=== PATIENT | male | born 1945 | race Caucasian/White ===

== ENCOUNTER 2024-10-15 14:11 | Outpatient (RCR) | payer MEDICARE, SELFPAY ==
--- NOTE | 2024-10-15 16:13 | PT.OPEX ---
PT [place] Outpatient Eval PT [facility] Outpatient Eval Start: 10/15/24 13:58 Freq: Status: Active Protocol: Document 10/15/24 14:00 ENM (Rec: 10/15/24 14:56 ENM [id number]) E-signed By Ericka Malhotra DPT Physical Therapy Outpatient Evaluation Insurance Information Recert Due Date 01/13/25 Insurance Name Medicare B Medical Diagnosis unilateral primary osteoarthritis, right knee presence of right artificial knee joint Treating Diagnosis right knee pain, left knee pain, impaired gait, impaired balance, decreased knee ROM, Referring MD Mikey Subjective Subjective Patient presents to PT for pre -op evaluation prior to right TKA on 10/22/24. This surgery is a long time coming. Had knee injections in the past which provided little relief of symptoms. Has been using the cane consistently out of the house and in the house. His will be helping after surgery who has had a knee replacement in the past. With doing activity on his feet he is limited by pain. His goal is to get back to standing and doing housework. For full information on home set up see pre-op flowsheet. Pain Comments -11/29 Current Work Status Retired Objective Other/Pertinent Objective Knee AROM L 0-9-117 R 0-6-121 Pain with knee extension B strength: hip flexors 4-/5 B knee extensors: 4-/5 B able to complete SLR without assist ankle DF 4/5 B gait/balance: Patient ambulates with SEC, slow pace, flexed posture, varus leg posture, decreased weight acceptance and decreased knee extension Assessment Assessment/Impression Patient is a 78 year old male presenting for pre op visit prior to L TKA on DOS 10/22/24. They have struggled with bilateral knee pains for years now with minimal relief from knee injections. Are hoping to have their left knee replaced in the future as well . Patients goals for after surgery are to be able to perform household tasks and stand for longer periods of time. Upon assessment patient displays decreased knee ROM, decreased proximal hip strength and antalgic gait pattern. Knee ROM is limited bilaterally, R knee 0-6-121. They display varus knee positioning in weightbearing. Gait impairments include slow pace, flexed posture, decreased knee extension and decreased weight acceptance. Chao will be seen post operatively at another facility to reassess impairments that will be addressed with skilled care. He would greatly benefit from skilled PT in order to progress strength, ROM and ambulation post operatively for return to PLOF. Primary Functional Limitations any standing or weightbearing activities Plan of Care Rehabilitation Potential Good Physical Therapy Goals After pre-op visit: ? Patient will be independent with HEP ? Patient will verbalize knowledge of stair navigation and proper sequencing ? Patient will have knowledge on home adaptations and use of assistive devices post operatively ? Patient will have knowledge of edema management Coordination/Communication With Referral Source Frequency/Duration 1x visit prior to surgery on . Patient will continue with post operative therapy at another clinic Patient Will Be Discharged From Therapy Completion of LTG(s), Independent w/HEP Evaluation Billing Untimed Code Treatment Minutes 24 Complexity Low Certification Information Initial Certification Date 10/15/24 Ending Certification Date 01/13/25 Provider Signature Required Yes Provider Signature Shows Agreement With POC & Medical Necessity Physician NPI Number Write NPI# Here Physician Comment/Change : Physician Signature & Date Requested Please Sign/Date Here
== END 2025-02-12 23:59 | disposition home or self-care (01) ==
PROVIDERS: Visit Provider Orthopaedic Surgery Sports Medicine
DX: Z48.89 Encounter for other specified surgical aftercare (principal); M17.11 Unilateral primary osteoarthritis, right knee; Z96.651 Presence of right artificial knee joint; M25.562 Pain in left knee; R26.9 Unspecified abnormalities of gait and mobility; R26.81 Unsteadiness on feet; Z51.89 Encounter for other specified aftercare
CPT/HCPCS: 97110; 97161

== ENCOUNTER 2024-10-22 09:52 | Day surgery (SDC) | payer MEDICARE, SELFPAY ==
[2024-10-22] VITALS (24 sets, daily range): BP systolic 107–143; BP diastolic 52–91; PULSE 50–76; RESP 14–22; TEMP 35.7–36.7; O2SAT 92–98; BMI 33.1
--- OUTSIDE RECORDS SUMMARY | 2024-10-22 09:56 | XMS_ITS | Clinical Summary ---
Author Organization [facility] Address [address] [place] [address] Care Team Providers Care Business Applications Analyst Name Role Phone Patricia Cha APRN, C.N.P. Primary Care Provider Source Comments Patient records contain information from all sites at [facility]. For routine questions regarding patient records, call [phone] during business hours, M-F 8:00 AM - 5:00 PM Central Time. Record requests for emergency care only can be directed to [phone] at any time.[facility] Allergies No known active allergies Medications * This document contains information received from the source organization and may not represent a complete record from that organization. fluticasone (for_FLONASE) 50 mcg/actuation nasal spray Administer 1 spray into each nostril 2 (two) times a day. 5 Active pravastatin (PRAVACHOL) 40 mg tablet TAKE 1 TABLET(40 MG) BY MOUTH DAILY 90 tablet 3 4 Active sildenafiL (Viagra) 50 mg tablet Take 1 tablet (50 mg total) by mouth daily as needed for erectile dysfunction. 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 Preoperative Exam (Primary Dx) from Last 3 Months Immunizations Immunization Administration Dates Next Due H1N1 All Forms 09/13/2009 HZV (ZOSTAVAX) 08/29/2015 Influenza Split 06/28/2009, 3,06/25/2002,2000,06/08/2000 Influenza, Quadrivalent, Adj uvanted, Preservative Free 06/22/2022,05/28/2021,06/22/2020 Influenza, Unspecified 07/31/2016,07/19/2015,02/2007 PCV13 08/29/2015 PPSV23 06/11/2014,03/28/2006 RZV (SHINGRIX) 02/02/2023,07/07/2021 SARS-COV-2 (COVID-19) - JANS SEN (J&J)(Discontinued) 10/24/2020 SARS-COV-2 (COVID-19) - PFIZ ER BIVALENT TS(Discontinued)(12 YEARS OR OLDER) 02/02/2023,05/04/2022 Td (Adult), adsorbed 01/15/2010,01/15/2010 Tdap 09/28/2017 influenza trivalent high dos e (HD)(PF) 07/30/2017,06/11/2014 influenza trivalent vaccine (6 months and older)(PF) 07/19/2008 Family History Medical History Relation Name Comments Prostate cancer Father Stroke Father Relation Name Status Comments Father Social History Tobacco Use Types Packs/Day Years Used Date Smoking Tobacco: Former Cigarettes 0 03/02/1975 - 08/22/1984 Smokeless Tobacco: Never Tobacco Cessation:Counseling Given: Not Answered Alcohol Use Standard Drinks/Week Comments Yes 1 (1 standard drink = 0.6 oz pur e alcohol) [facility] Utilities Answer Date Recorded In the past 12 months has e [employer], gas, oil, or water [employer] threatened to shut off services in your home? No 10/04/2024 Humiliation, Afraid, Rape, and Kick questionnair e Answer Date Recorded Within the last year, have y ou been afraid of your partner or ex-partner? No 02/02/2023 Within the last year, have y ou been humiliated or emotionally abused in other ways by your partner or ex-partner? No Within the last year, have y ou been kicked, hit, slapped, or otherwise physically hurt by your partner or ex-partner? No 02/02/2023 Within the last year, have y ou been raped or forced to have any kind of sexual activity by your partner or ex-partner? No 02/02/2023 Overall Financial Resource Strain (CARDIA) Answe r Date Recorded How hard is it for you to pa y for the very basics like food, housing, medical care, and heating? Not hard at all 02/02/2023 PHQ-2 Answer Date Recorded PHQ-2 Score 0 10/04/2024 Exercise Vital Sign Answer Date Recorde d On average, how many days pe r week do you engage in moderate to strenuous exercise (like a brisk walk)? 0 days 10/04/2024 On average, how many minutes do you engage in exercise at this level? 0 min 10/04/2024 Hunger Vital Sign Answer Date Recorded Within the past 12 months, y ou worried that your food would run out before you got the money to buy more. Never true 10/04/19 25 Within the past 12 months, t he food you bought just didn't last and you didn't have money to get more. Never true 10/04/2024 PRAPARE - Transportation Answer Date Re corded In the past 12 months, has l ack of transportation kept you from medical appointments or from getting medications? No 09/22 In the past 12 months, has l ack of transportation kept you from meetings, work, or from getting things needed for daily living? No 10/04/2024 Nutrition Answer Date Recorded On average, how many serving s of fruits and vegetables do you eat per day (serving size is equal to 1 cup or approximately the size of a tennis ball)? 0-2 10/04/2024 Dental Answer Date Recorded Dental: Regular Dentist Yes 02/03/20 Employment Answer Date Recorded Employment status Retired 10/04/2024 Housing Stability Answer Date Recorded What is your living situation today? [facility] to [facility] 10/04/2024 Sex and Gender Information Value Date Recorded Sex Assigned at Male 10/04/2024 6:18 PM QUALITY ASSURANCE ADVISOR Legal Sex Male 1:11 AM QUALITY ASSURANCE ADVISOR Gender Identity Male 12/01/2017 2:56 PM CDT Sexual Orientation Straight 10/04/2024 6: 18 PM QUALITY ASSURANCE ADVISOR Last Filed Vital Signs Vital Sign Reading Time Taken Comments Blood Pressure 138/80 10/05/2024 11:11 AM QUALITY ASSURANCE ADVISOR Pulse 88 10/05/2024 11:11 AM QUALITY ASSURANCE ADVISOR Temperature 36.1 C (97 F) 02/02/2023 1:31 PM CDT Respiratory Rate 16 12/08/2018 1:55 PM CDT Oxygen Saturation 96% 04/22/2018 11:00 AM CDT Inhaled Oxygen Concentration - - Weight 97 kg (213 lb 13.5 oz) 10/05/2024 11:11 A M QUALITY ASSURANCE ADVISOR Height 171 cm (5' 7.32) 10/05/2024 11:11 AM QUALITY ASSURANCE ADVISOR Body Mass Index 33.17 10/05/2024 11:11 AM QUALITY ASSURANCE ADVISOR Plan of Treatment Health Maintenance Due Date Last Done Comments Hepatitis B Screening 1945 COVID-19 Vaccine ( season) 2024 06/23/2024, 12/02/2023, 07/11/2023, Additional history exists Visit: Annual, age 65+ (or Medicare and <65) 10/05/2025 10/05/2024 DTaP,Tdap,and Td Vaccines (2 - Td or Tdap) 09/28/2027 09/28/2017, 01/15/2010, 01/15/2010 Pneumococcal vaccine (50+ years) Completed 08/29/2015, 06/11/2014, 03/28/2006 Colonoscopy Discontinued 07/08/2017, 06/22, 12/08/2007 Colorectal Cancer Surveillance Discontinued Abdominal Aortic Aneurysm (AAA) Screen Discontinued 12/20/2018 Zoster Vaccines Completed 02/02/2023, 06/22, 08/29/2015 RSV vaccine - (32-36 weeks) or 60+ years Completed 07/11/2023 Influenza Vaccine Completed 06/23/2024, , 06/22/2022, Additional history exists Depression Screening (Annual PHQ-2) Completed 10/05/2024, 10/04/2024 Fall Risk Screen (Annual) Completed 10/05/2024 CT Colonography Discontinued Cologuard Discontinued IPV Vaccines Aged Out No longer eligi ble based on patient's age to complete this topic Medical Devices Implanted Type Area Assistant Auditor Device Identifier Shelf Expiration Date Model / Serial / Lot Grft [facility] Db Ch Can 30 - [id number] - [id number] Implanted:Qty: 1 on 04/18/2018 by Mauro Hernandez M.D. at [facility] Bone or Tissue [employer] 10/30/2022 [id number] / [id number] / Grft Grf Dbm Pst 10 - [id number] - [id number] Implanted:Qty: 1 on 04/18/2018 by Mauro Hernandez M.D. at [facility] Bone or Tissue [employer] 11/16/2019 [id number] / [id number] / - K-Wire-Ss 4 Smooth .035 - [id number] Implanted:Qty: 2 on 06/10/2014 Hardware e.g. pins/screws /rods Stanley Description:Device Manufactu rer - [place] [employer].. Device Status Text - HARDWARE-873. Spn Scrw Slr Jeanine Mas 7.5x50 - Sna - [id number] Implanted:Qty: 1 on 04/18/2018 by Mauro Hernandez M.D. at [facility] Hardware e.g. pins/screws /rods Medtronic [id number] / NA / NA Spn Scrw Slr Jeanine Mas 7.5x55 - Sna - [id number] Implanted:Qty: 1 on 04/18/2018 by Mauro Hernandez M.D. at [facility] Hardware e.g. pins/screws /rods Medtronic [id number] / NA / NA Spn Scrw Slr Sld 5.5 - Sna - [id number] Implanted:Qty: 2 on 04/18/2018 by Mauro Hernandez M.D. at [facility] Hardware e.g. pins/screws /rods Posterior : Spine Lumbar Medtronic [id number] / NA / NA 30mm By 5.5mm Capped Chao Severance Chrom Implanted:Qty: 1 on 04/18/2018 by Mauro Hernandez M.D. at [facility] Hardware e.g. pins/screws /rods Posterior : Spine Lumbar Medtronic [id number] / NA / NA Procedures Procedure Name Priority Date/Time Associated Diagnosis Comments US AORTA RAD - Routine (most inpatients and all outpatients) 12/20/2018 7:35 AM CDT General Medical Examination Adult Hyperlipidemia from Last 3 Months or Most Recently Relevant to Health Maintenance Results * US Aorta (12/20/2018 7:35 AM CDT) Anatomical Region Laterality Modality Abdomen, Pelvis, Ultrasound RST LOS, Ultrasound ARZ LOS, Ultrasound FLA LOS N/A Ultrasound 12/20/2018 9:04 AM CDT Impressions 12/20/2018 9:05 AM CDT IMPRESSION: No abdominal aortic aneurysm Narrative 12/20/2018 9:05 AM CDT EXAM: US AORTA Exam performed with color and spectral Doppler analysis. COMPARISON: None FINDINGS: Aorta: AP - 1.6 cm Aorta: Trans - 1.4 cm Right AMIRAH: AP - 1.0 cm Right AMIRAH Trans - 1.0 cm Left AMIRAH: AP - 1.1 cm Left AMIRAH Trans - 1.1 cm Procedure Note Amor Lainez M.D. - 12/20/2018 EXAM: US AORTA Exam performed with color and spectral Doppler analysis. COMPARISON: None FINDINGS: Aorta: AP - 1.6 cm Aorta: Trans - 1.4 cm Right AMIRAH: AP - 1.0 cm Right AMIRAH Trans - 1.0 cm Left AMIRAH: AP - 1.1 cm Left AMIRAH Trans - 1.1 cm IMPRESSION: No abdominal aortic aneurysm Cortes Kimble M.D. IMG US PROCEDURES Final Result from Last 3 Months or Most Recently Relevant to Health Maintenance Insurance MEDICARE [facility] Care Teams Business Applications Analyst Relationship Specialty Start Date End Date Patricia Cha APRN, C.N.P. [address] [place] [address] [place] [phone] PCP - General Family Medicine 02/18/17
[2024-10-22] MEDS: LACTATED RINGERS 1000 ML 1,000 ML 100 ML IV (10:00)
[2024-10-22] MEDS: OXYCODONE (CR) 10 MG TAB.ER.12H PO (10:15)
[2024-10-22] MEDS: ACETAMINOPHEN 500 MG TABLET 1000 MG PO ×3 (10:15→23:05)
--- NOTE | 2024-10-22 10:23 | W.PM.H&PU ---
History & Physical Update History & Physical Update H&P Reviewed and patient assessed: No changes noted
[2024-10-22] MEDS: SODIUM CHLORIDE 0.9 % (FLUSH) 10 ML SYRINGE IVF (10:25)
[2024-10-22] MEDS: fentaNYL 100 MCG/2 ML inj IVP (12:05)
[2024-10-22] MEDS: MIDAZOLAM HCL 1 MG/ML inj IVP (12:05)
--- NOTE | 2024-10-22 12:12 | W.PM.NB ---
Nerve Block Nerve Block Time Seen by Provider: 12:12 Date Seen: 10/22/24 Type of block requested by surgeon for post-operative analgesia: geniculars Side: right Time out performed: Yes Verification of patient name: Yes Verification of date of : Yes Site marking: site marked Name of person performing procedure: Tom Continuous monitoring Was continuous monitoring of O2 sat, B/P, court monitor, recorded every 15 minutes?: Yes Procedure Checklist: sterile prep, needles and gloves Ultrasound guided. Images saved: Yes Medications given in 5ml increments after negative aspiration: Marcaine %: 0.25 mL: 9 Needle gauge: 25 Patient tolerated procedure well: Yes Block Charges Block Charge (with Pro Fee): Genicular Nerve Block
--- NOTE | 2024-10-22 12:13 | W.PM.NB ---
Nerve Block Nerve Block Time Seen by Provider: 12:12 Date Seen: 10/22/24 Type of block requested by surgeon for post-operative analgesia: adductor canal Side: right Time out performed: Yes Verification of patient name: Yes Verification of date of : Yes Site marking: site marked Name of person performing procedure: Tom Continuous monitoring Was continuous monitoring of O2 sat, B/P, secured entrance monitor, recorded every 15 minutes?: Yes Procedure Checklist: sterile prep, needles and gloves Ultrasound guided. Images saved: Yes Medications given in 5ml increments after negative aspiration: Marcaine %: 0.25 mL: 15 Needle gauge: 20 Precedex (mcg): 25 Patient tolerated procedure well: Yes Block Charges Block Charge (with Pro Fee): Femoral Nerve Use of Ultrasound Machine for Block: Yes- US Guidance/pain block
--- NOTE | 2024-10-22 12:13 | W.ANESCHARGE ---
Anesthesia Charges Start Date/Time Anesthesia Start Date: 10/22/24 Anesthesia Start Time: 13:22 Stop Date/Time Anesthesia Stop Date: 10/22/24 Anesthesia Stop Time: 15:30 Summary Extremes of Age - Over 70 or under 1: MDA Coding CPT Codes CPT Codes: ANESTH KNEE ARTHROPLASTY - 30149 ([id number]) P2 - PATIENT W/MILD SYST DISEASE, QK - ENTERPRISE ENGINEER 2-4 CNCRNT ANES PROC, QX - CONTINUITY COORDINATOR SVC W/ MD MED DIRECTION Additional Codes: Summary - Extremes of Age - Over 70 or under 1: MDA ([id number])
--- NOTE | 2024-10-22 12:21 | SUR.PREOP ---
TIME?OUT:?1205 PT/bayron lyn RN/michi chapman MDA?VERIFICATION?OF?SURGICAL?SITE,?PROCEDURE,?AND?CONSENT OBTAINED?PRIOR?TO?INVASIVE?PROCEDURE.
[2024-10-22] MEDS: TRANEXAMIC ACID 100 MG/ML INJ 1000 MG IV (13:46)
[2024-10-22] MEDS: CEFAZOLIN 2 GM in 0.9 % SODIUM CHLORIDE Mini-bag 100 ML IVPB ×2 (13:46→18:34)
[2024-10-22] MEDS: LACTATED RINGERS 500 ML 500 ML 125 ML IV (15:12)
--- NOTE | 2024-10-22 15:17 | PM.ORPRC ---
Procedure Note Date of procedure: 10/22/24 Procedure: PREOPERATIVE DIAGNOSIS: 1. Right knee osteoarthritis, primary, severe POSTOPERATIVE DIAGNOSIS: 1. Right knee osteoarthritis, primary, severe PROCEDURE: 1. Right total knee arthroplasty - subvastus SURGEON: Helder Jensen MD. AUTOMATED CUTTING MACHINE OPERATOR: ESPINOZA Shannon - Of note, a skilled hr assistant was critical for this case to aid in patient positioning, tissue retraction, limb manipulation/positioning, and closure. ANESTHESIA: Spinal anesthetic IMPLANTS: DePuy J&J all cemented TKA - Attune PS femur size 7 Size 6 tibia 5 poly spacer 38 mm patella TOURNIQUET: 90 min at 300 torr EBL: 50 ml COMPLICATIONS: None evident INDICATIONS: The patient is a pleasant 78-year-old male who has experienced severe right knee pain and difficulty bearing weight. Workup included x-rays which revealed severe osteoarthrosis in the knee. Given the deformity, the dysfunction, and the pain, as well as the failure of nonoperative management, recommendation was made for surgery. FINDINGS: Full-thickness chondral loss diffusely throughout the medial compartment with erosion into the medial femur and tibia. To lesser degree chondromalacia patellofemoral and lateral compartments. Degenerative meniscus pathology with medial greater than lateral involvement. Large effusion upon entering the joint. DESCRIPTION OF PROCEDURE: Following a thorough discussion of risks, benefits, and alternatives consent was obtained and the right knee was marked. The patient was brought to the operating room and placed supine on the operating table. Induction of anesthesia was undertaken. 2 g IV Ancef and 1 g tranexamic acid was administered within 1 hr of incision preoperatively. Proper time-out was performed identifying proper patient, site, procedure. The operative extremity was prepped and draped in the appropriate sterile fashion using ChloraPrep after the patient was positioned supine with all bony prominences well padded. A longitudinal, anterior, midline skin incision was made starting approximately 3cm proximal to the superior pole of the patella and advanced distal to the tibial tubercle. A subvastus approach was utilized. A medial subperiosteal sleeve was created with knife, kirby elevator and curved osteotome. The retropatellar fatpad was resected and the synovium in the suprapatellar pouch excised to visualize the anterior femoral cortex. Femoral preparation was performed via an intramedullary guide. Step drill allowed access into the femoral canal. The distal cutting guide was placed with 5? of valgus and 12 mm cut on the distal femur due to a 15? flexion contracture. Femur was sized using a posterior referencing guide in 3? of external rotation. This found have a best fit with the sizing noted above. The 4 in 1 cutting block was then placed, and the distal femur shaped accordingly. The box cut was then created and the trial implant inserted to confirm appropriate fit. We turned our attention to the proximal tibia. Extramedullary guide was utilized for cutting with the goal of being 90 degree cut from the mechanical axis of the tibia in the varus/valgus plane utilizing tibial crest as the primary alignment. Initially a 1 mm resection was performed from the medial tibial plateau. Ultimately, balancing was achieved in both flexion and extension in both varus and valgus. The knee was able to achieve full extension as well comfortably. The patella was initially measured and found have a thickness of 25 mm. It was resected back to approximately 14.5 mm. It was sized to be a best fit with as noted above. This was drilled, trial placed. All trials were placed and found to have an excellent stability and balance. At this stage, trial implants were removed, the knee was thoroughly irrigated with normal saline, and the cement was mixed. After irrigation, the knee was thoroughly dried, and cement placed, with the real tibial and femoral implants placed along with the patella. Trial poly spacer was placed and confirmed to have excellent range of motion and full extension, and the real poly spacer opened and inserted. All extra cement was removed, and a 3 min Betadine soak performed. Finally, a final irrigation round with normal saline was performed. Closure performed with 0 Vicryl and #0 Stratafix for the quad tendon/retinaculum. 2-0 Vicryl for the subcutaneous and 4-0 Stratafix for subcuticular closure. Dressings were applied and the patient was awoken from anesthesia after the tourniquet deflated and transferred the PACU in stable condition. A skilled hr assistant was critical for this case to aid in patient positioning, tissue retraction, bone exposure, limb manipulation/positioning, patient safety, and closure. PLAN: 1. Weight bear as tolerated operative extremity. 2. 23 hr perioperative antibiotics. 3. Ice. 4. PT/OT consults for ambulation assistance/mobility education. 5. Social work consult for discharge planning. 6. DVT prophylaxis with at SCDs and aspirin twice daily.
--- NOTE | 2024-10-22 15:40 | W.ANESCHARGE ---
Anesthesia Charges Start Date/Time Anesthesia Start Date: 10/22/24 Anesthesia Start Time: 13:22 Stop Date/Time Anesthesia Stop Date: 10/22/24 Anesthesia Stop Time: 15:30 Coding CPT Codes CPT Codes: ANESTH KNEE ARTHROPLASTY - 22388 ([id number]) P2 - PATIENT W/MILD SYST DISEASE, QK - TWISTING FRAME OPERATOR 2-4 CNCRNT ANES PROC, QX - HUMAN PERFORMANCE CONSULTANT SVC W/ MD MED DIRECTION
[2024-10-22] MEDS: OXYCODONE 5 MG TABLET PO ×4 (17:37→23:05)
[2024-10-22] MEDS: SENNOSIDES 1 TAB TABLET 2 TAB PO (21:01)
[2024-10-22] MEDS: ASPIRIN 81 MG TABLET EC PO (21:01)
--- NOTE | 2024-10-22 21:15 | PM.IMCN1 ---
Date of Consult Consult date: 10/22/24 Primary Care Provider: Not a Local Provider Consult Narrative Narrative: Kalin Hidalgo is a 78 year old male without a significant PMHx except for HLD and OA. Currently is s/P Rt TKR on 10/22/24. Pt denies Hx of bleeding or clots. Pt feels well post op and was able to void. Pain controlled w/ meds. Review of Systems Status of ROS: Reports: 6 or more systems reviewed and unremarkable except as noted in History and below [facility] Medical History (Updated 10/23/24 @ 01:42 by Ariadna Alexis MD) Squamous cell carcinoma Hyperlipidemia ?E78.5 - Hyperlipidemia, unspecified (ICD-10) Surgical History (Updated 10/23/24 @ 01:42 by Ariadna Alexis MD) History of total right knee replacement (10/22/24) ?Z96.651 - Presence of right artificial knee joint (ICD-10) History of vasectomy (1993) ?Z98.52 - Vasectomy status (ICD-10) History of open reduction and internal fixation (ORIF) procedure (06/10/14) ?Z98.890 - Other specified postprocedural states (ICD-10) History of lumbar fusion (04/18/18) ?Z98.1 - Arthrodesis status (ICD-10) Social History What is your current living situation?: I presently have a place to live Smoking Status: Current some day smoker How often do you have a drink containing alcohol: 2-3 times a week AUDIT-C Alcohol total score: 3 Non-prescribed substance use: denies use Caffeine: Yes Meds Home Medications and Allergies Home Medications ?Medication ?Instructions ?Recorded ?Confirmed ?Type pravastatin 40 mg tablet 40 mg PO DAILY 09/18/24 10/22/24 History Allergies Allergy/AdvReac Type Severity Reaction Status Date / Time No Known Drug Allergies Allergy Verified 10/22/24 10:18 Exam Narrative: Exam Narrative: Physical exam GENERAL: Comfortable, no acute distress. HEAD AND NECK: Atraumatic, normocephalic CARDIOVASCULAR: RRR. Normal S1, S2. No murmurs. RESPIRATORY: Clear to auscultation B/L. Good air entry B/L. No wheezes or rhonchi. GASTROINTESTINAL: obese, not tender to palpation. NEUROLOGY: Alert, awake, oriented X 3. Normal speech. PSYCH: Normal mood, normal affect. The Const: Vital Signs, click to edit/add: Vital Signs - 24 hr 10/22/24 10:21 10/22/24 12:05 10/22/24 12:10 Temperature 97.9 F Pulse Rate 71 61 63 Respiratory Rate 16 16 16 Blood Pressure 143/77 H 140/86 H 136/73 Pulse Oximetry 95 98 97 Oxygen Delivery Me thod Room Air Nasal Cannula Nasal Cannula Oxygen Flow Rate 3 3 10/22/24 12:15 10/22/24 15:25 10/22/24 15:30 Temperature 97.4 F L Pulse Rate 60 59 L 55 L Respiratory Rate 16 20 22 Blood Pressure 130/64 107/62 111/68 Pulse Oximetry 96 96 94 Oxygen Delivery Me thod Nasal Cannula Room Air Room Air Oxygen Flow Rate 3 10/22/24 15:35 10/22/24 15:40 10/22/24 15:45 Temperature 97.5 F L Pulse Rate 53 L 51 L 53 L Respiratory Rate 18 18 16 Blood Pressure 113/64 111/72 122/81 Pulse Oximetry 92 94 94 Oxygen Delivery Me thod Room Air Room Air Room Air Oxygen Flow Rate 10/22/24 15:50 10/22/24 15:55 10/22/24 16:00 Temperature 97.6 F Pulse Rate 51 L 53 L 56 L Respiratory Rate 14 18 16 Blood Pressure 117/67 122/72 131/74 Pulse Oximetry 95 96 96 Oxygen Delivery Me thod Room Air Room Air Room Air Oxygen Flow Rate 10/22/24 16:10 10/22/24 16:15 10/22/24 16:30 Temperature 96.3 F L Pulse Rate 56 L 54 L 51 L Respiratory Rate 16 16 16 Blood Pressure 127/52 L 126/67 143/66 H Pulse Oximetry 95 96 96 Oxygen Delivery Me thod Room Air Room Air Room Air Oxygen Flow Rate 10/22/24 16:45 10/22/24 17:00 10/22/24 17:30 Temperature 96.7 F L 97.0 F L Pulse Rate 51 L 50 L 53 L Respiratory Rate 16 16 16 Blood Pressure 142/70 H 141/76 H 133/76 Pulse Oximetry 96 98 97 Oxygen Delivery Me thod Room Air Room Air Room Air Oxygen Flow Rate 10/22/24 18:00 Temperature Pulse Rate 54 L Respiratory Rate 16 Blood Pressure 141/70 H Pulse Oximetry 97 Oxygen Delivery Me thod Room Air Oxygen Flow Rate Assessment and Plan Assessment and plan (1) Status post total knee replacement: Problem comment: -Weight bear as tolerated operative extremity. -Spirometry -PT/OT consults for ambulation assistance/mobility education. -DVT prophylaxis with at SCDs and aspirin twice daily. Status: Acute (2) Osteoarthritis of right knee: Problem comment: Severe, [id number] Status: Acute (3) Hyperlipidemia: Problem comment: on a statin Status: Acute Total Time Spent Total Time Spent: Time spent: Today I spent 75 minutes seeing the patient, discussing the patient with ER staff, reviewing Expanse and EPIC notes/diagnostics, discussing the care plan with our care time that includes social work, PT/OT, pharmacy, RT, long-term and documenting my impressions and plan in the medical record.
--- NOTE | 2024-10-22 22:21 | PC.NURSE ---
Addendum entered by Shantelle Gonzalez RN 10/22/24 23:57: Patient heart rate in the 50s upon arrival from PACU, denies any symptoms. Updated MD and no new orders at this time. Original Note: End of Shift: Patient pleasant and cooperative. Afebrile. Dressing to right knee C/D/I. CMS intact. Rating pain up to 2-4/10 and PRN oxycodone given. Up to bathroom and chair with 1 assist, walker and gait belt. Tolerating regular diet with no nausea.
[2024-10-23] MEDS: OXYCODONE 5 MG TABLET PO ×4 (02:58→10:46)
[2024-10-23 03:00] VITALS: BP 147/75; PULSE 71; RESP 20; TEMP 36.4; O2SAT 96
[2024-10-23] MEDS: CEFAZOLIN 2 GM in 0.9 % SODIUM CHLORIDE Mini-bag 100 ML IVPB (03:01)
[2024-10-23] MEDS: ACETAMINOPHEN 500 MG TABLET 1000 MG PO ×2 (04:26→11:07)
[2024-10-23] MEDS: ONDANSETRON 2 MG/ML inj 4 MG IVP (04:37)
[2024-10-23 06:21] LABS: Basophils Absolute Auto 0.01 K/uL (0.00-0.30); Basophils Percent Auto 0.1 % (0.0-3.0); Hematocrit 39.8 % (37.0-53.0); Hemoglobin* 13.6 gm/dL (13.5-17.5); Immature Granulocytes Pct Auto 1.1 %; Mean Corpuscular HGB Conc 34 gm/dL (32-36); Mean Corpuscular Hemoglobin 32 pg (26-34); Mean Corpuscular Volume 93 fL (80-100); Monocytes Percent Auto 10.9 % (0.0-11.0); Neutrophils Percent Auto 80.9 % (42.0-72.0); Platelet Count* 235 K/uL (140-440); RDW Coefficient of Variation % 13.3 % (11.5-15.5); Red Blood Count 4.29 m/uL (4.30-5.90); White Blood Count* 9.24 K/uL (4.50-11.00)
[2024-10-23 06:24] LABS: Slide Review Reflex No
[2024-10-23 06:41] LABS: Potassium* 4.1 mmol/L (3.6-5.1); Sodium* 138 mmol/L (135-149)
[2024-10-23 06:44] LABS: Blood Urea Nitrogen* 17 mg/dL (7-30); Creatinine* 0.8 mg/dL (0.5-1.5); Est. Creatinine Clearance* 58.76; Estimated Glomerular Filt Rate 92 ml/min
--- NOTE | 2024-10-23 06:55 | PC.NURSE ---
End of shift summary: Pt has been A&O, afebrile and VSS overnight. He is up with Ax1 and 2ww. Pain was overall well controlled overnight but increased around 0430 where he had a bout of nausea as well but no emesis. Zofran given @ 0435. PRN oxycodone given throughout the night with adequate relief, last dose @ 0520. Right knee dressing C/D/I with mild swelling and redness around the joint. Active ice on/off throughout the night and SCD's in place. PIV in left hand SL and pt has had adequate output. CMS intact and active bowel sounds. No BM overnight. Pt is planning on discharging home today in the care of his .
[2024-10-23 08:20] VITALS: BP 136/75; PULSE 78; RESP 18; TEMP 36.4; O2SAT 93
[2024-10-23] MEDS: ASPIRIN 81 MG TABLET EC PO (09:03)
[2024-10-23] MEDS: SENNOSIDES 1 TAB TABLET 2 TAB PO (09:04)
[2024-10-23 09:23] VITALS: O2SAT 93
--- NOTE | 2024-10-23 09:51 | PM.ORPN ---
Subjective Subjective Date Seen: 10/23/24 Principal diagnosis: Status postop day 1 Right total knee arthroplasty Interval history: Patient reports doing well. No acute events over night. Nausea this morning around 0430 after taking acetaminophen - zofran helped and resolved symptoms; no vomiting. Pain managed with scheduled and PRN medications, ice. DVT prophylaxis: 81 mg aspirin by mouth twice daily, SCDs, walking. Denies fevers, chills, aches, N/V, CP, SOB/ARMSTRONG, or lightheadedness. States feeling a little drowsy after his morning narcotic and PT. States that he maybe has one cigarette a week. Ortho Exam Narrative Exam Narrative: -Patient appears comfortable; no apparent acute distress -Alert and oriented times 3 -Operative knee moderately swollen; soft tissues supple; no ecchymosis; no erythematous streaking. Warmth appropriate -Surgical dressing clean, dry, intact; no drainage -Bilateral calfs soft; no significant swelling, edema, tenderness, erythema, discoloration, warmth, or palpable cords -2+ DP/PT pulses, intact dermatomes and myotomes distally (5/5 strength) Const Vital Signs, click to edit/add: Vital Signs - 24 hr 10/22/24 10:21 10/22/24 12:05 10/22/24 12:10 Temperature 97.9 F Pulse Rate 71 61 63 Pulse Rate [Apical] Pulse Rate [Pulse Oximeter] Respiratory Rate 16 16 16 Blood Pressure 143/77 H 140/86 H 136/73 Blood Pressure [Left Arm] Blood Pressure [Right Arm] Pulse Oximetry 95 98 97 Oxygen Delivery Method Room Air Nasal Cannula Nasal Cannula Oxygen Flow Rate 3 3 10/22/24 12:15 10/22/24 15:25 10/22/24 15:30 Temperature 97.4 F L Pulse Rate 60 59 L 55 L Pulse Rate [Apical] Pulse Rate [Pulse Oximeter] Respiratory Rate 16 20 22 Blood Pressure 130/64 107/62 111/68 Blood Pressure [Left Arm] Blood Pressure [Right Arm] Pulse Oximetry 96 96 94 Oxygen Delivery Method Nasal Cannula Room Air Room Air Oxygen Flow Rate 3 10/22/24 15:35 10/22/24 15:40 10/22/24 15:45 Temperature 97.5 F L Pulse Rate 53 L 51 L 53 L Pulse Rate [Apical] Pulse Rate [Pulse Oximeter] Respiratory Rate 18 18 16 Blood Pressure 113/64 111/72 122/81 Blood Pressure [Left Arm] Blood Pressure [Right Arm] Pulse Oximetry 92 94 94 Oxygen Delivery Method Room Air Room Air Room Air Oxygen Flow Rate 10/22/24 15:50 10/22/24 15:55 10/22/24 16:00 Temperature 97.6 F Pulse Rate 51 L 53 L 56 L Pulse Rate [Apical] Pulse Rate [Pulse Oximeter] Respiratory Rate 14 18 16 Blood Pressure 117/67 122/72 131/74 Blood Pressure [Left Arm] Blood Pressure [Right Arm] Pulse Oximetry 95 96 96 Oxygen Delivery Method Room Air Room Air Room Air Oxygen Flow Rate 10/22/24 16:10 10/22/24 16:15 10/22/24 16:30 Temperature 96.3 F L Pulse Rate 56 L 54 L 51 L Pulse Rate [Apical] Pulse Rate [Pulse Oximeter] Respiratory Rate 16 16 16 Blood Pressure 127/52 L 126/67 143/66 H Blood Pressure [Left Arm] Blood Pressure [Right Arm] Pulse Oximetry 95 96 96 Oxygen Delivery Method Room Air Room Air Room Air Oxygen Flow Rate 10/22/24 16:45 10/22/24 17:00 10/22/24 17:30 Temperature 96.7 F L 97.0 F L Pulse Rate 51 L 50 L 53 L Pulse Rate [Apical] Pulse Rate [Pulse Oximeter] Respiratory Rate 16 16 16 Blood Pressure 142/70 H 141/76 H 133/76 Blood Pressure [Left Arm] Blood Pressure [Right Arm] Pulse Oximetry 96 98 97 Oxygen Delivery Method Room Air Room Air Room Air Oxygen Flow Rate 10/22/24 18:00 10/22/24 19:00 10/22/24 20:00 Temperature 98.0 F Pulse Rate 54 L 76 71 Pulse Rate [Apical] Pulse Rate [Pulse Oximeter] Respiratory Rate 16 16 16 Blood Pressure 141/70 H 135/65 138/91 H Blood Pressure [Left Arm] Blood Pressure [Right Arm] Pulse Oximetry 97 97 95 Oxygen Delivery Method Room Air Room Air Room Air Oxygen Flow Rate 10/22/24 21:00 10/22/24 22:00 10/22/24 23:45 Temperature 97.7 F 97.7 F Pulse Rate 72 72 Pulse Rate [Apical] Pulse Rate [Pulse Oximeter] Respiratory Rate 16 16 Blood Pressure 133/72 120/71 Blood Pressure [Left Arm] Blood Pressure [Right Arm] Pulse Oximetry 96 95 92 Oxygen Delivery Method Room Air Room Air Oxygen Flow Rate 10/22/24 23:45 10/22/24 23:45 10/22/24 23:45 Temperature 97.7 F Pulse Rate Pulse Rate [Apical] Pulse Rate [Pulse Oximeter] 68 68 Respiratory Rate 20 20 20 Blood Pressure Blood Pressure [Left Arm] Blood Pressure [Right Arm] 135/77 Pulse Oximetry 92 92 Oxygen Delivery Method Room Air Room Air Oxygen Flow Rate 10/23/24 03:00 10/23/24 08:20 10/23/24 09:23 Temperature 97.6 F 97.5 F L Pulse Rate Pulse Rate [Apical] 78 Pulse Rate [Pulse Oximeter] 71 Respiratory Rate 20 18 Blood Pressure Blood Pressure [Left Arm] 136/75 Blood Pressure [Right Arm] 147/75 H Pulse Oximetry 96 93 93 Oxygen Delivery Method Room Air Room Air Oxygen Flow Rate Assessment and Plan Assessment and plan (1) Status post total knee replacement: Problem details: -Weight bear as tolerated operative extremity. -Spirometry -PT/OT consults for ambulation assistance/mobility education. -DVT prophylaxis with at SCDs and aspirin twice daily. Status: Acute (2) Osteoarthritis of right knee: Problem details: Severe, [id number] Status: Acute (3) Hyperlipidemia: Problem details: on a statin Status: Acute Plan - Complete 23 hour perioperative antibiotics. - PT/OT consult for education and assistance. - Social work consult for discharge planning - Prescribed analgesics as needed - DVT prophylaxis: 81 mg aspirin by mouth twice daily, walking, and SCDs - Anticipation is for discharge to home with today 10/23/24 if the patient remains medically stable, pain is controlled, and they are safe with mobilization. It appears he did well with therapies, therefore he will discharging today.
== END 2024-10-23 11:15 | disposition home or self-care (01) ==
LOC: OR 09:54 → MEDSURG 09:55
PROVIDERS: Visit Provider Orthopaedic Surgery Sports Medicine
PROC: (CPT 27447; principal; 2024-10-22 12:15)
DX: M17.11 Unilateral primary osteoarthritis, right knee (principal); G89.18 Other acute postprocedural pain; E78.5 Hyperlipidemia, unspecified; Z72.0 Tobacco use
CPT/HCPCS: 27447; 01402; 36415; 64447; 64454; 73560; 76942; 82565; 84132; 84295; 84520; 85025; 97110; 97116; 97161; 97165; 97530; 97535; 99100; A9270; C1776; J0665; J0690; J1100; J2250; J2405; J2704; J3010; J7120

== ENCOUNTER 2025-02-27 06:58 | Day surgery (SDC) | payer MEDICARE, SELFPAY ==
[2025-02-27] VITALS (23 sets, daily range): BP systolic 88–155; BP diastolic 51–88; PULSE 51–76; RESP 15–18; TEMP 35.6–37.1; O2SAT 9–100; BMI 33.2
[2025-02-27] MEDS: LACTATED RINGERS 1000 ML 1,000 ML 100 ML IV ×2 (07:41→10:31)
[2025-02-27] MEDS: SODIUM CHLORIDE 0.9 % (FLUSH) 10 ML SYRINGE IVF (07:41)
--- NOTE | 2025-02-27 07:42 | W.PM.H&PU ---
History & Physical Update History & Physical Update H&P Reviewed and patient assessed: No changes noted
[2025-02-27] MEDS: OXYCODONE (CR) 10 MG TAB.ER.12H PO (08:30)
[2025-02-27] MEDS: ACETAMINOPHEN 500 MG TABLET 1000 MG PO ×3 (08:30→20:15)
--- NOTE | 2025-02-27 08:31 | SUR.PREOP ---
TIME?OUT:?0833 PT/RN/MDA?VERIFICATION?OF?SURGICAL?SITE,?PROCEDURE,?AND?CONSENT OBTAINED?PRIOR?TO?INVASIVE?PROCEDURE.
[2025-02-27] MEDS: MIDAZOLAM HCL 1 MG/ML inj IVP (08:35)
--- NOTE | 2025-02-27 09:09 | P.NB_ITS ---
Nerve Block Nerve Block Time Seen by Provider: 08:35 Date Seen: 02/27/25 Type of block requested by surgeon for post-operative analgesia: adductor canal Side: left Time out performed: Yes Verification of patient name: Yes Verification of date of : Yes Site marking: site marked Name of person performing procedure: Tom Continuous monitoring Was continuous monitoring of O2 sat, B/P, cardiac/vascular sonographer, recorded every 15 minutes?: Yes Procedure Checklist: sterile prep, needles and gloves Ultrasound guided. Images saved: Yes Medications given in 5ml increments after negative aspiration: Marcaine %: 0.25 mL: 15 Needle gauge: 20 Precedex (mcg): 25 Patient tolerated procedure well: Yes Block Charges Block Charge (with Pro Fee): Femoral Nerve Use of Ultrasound Machine for Block: Yes- US Guidance/pain block
--- NOTE | 2025-02-27 09:09 | P.ANES_ITS ---
Anesthesia Charges Start Date/Time Anesthesia Start Date: 02/27/25 Anesthesia Start Time: 08:55 Stop Date/Time Anesthesia Stop Date: 02/27/25 Anesthesia Stop Time: 11:14 Summary Extremes of Age - Over 70 or under 1: MDA Coding CPT Codes CPT Codes: ANESTH KNEE ARTHROPLASTY - 78423 ([id number]) P2 - PATIENT W/MILD SYST DISEASE, QK - BOILER RIVETER 2-4 CNCRNT ANES PROC, QX - TRACK PATROL SVC W/ MD MED DIRECTION Additional Codes: Summary - Extremes of Age - Over 70 or under 1: MDA ([id number])
--- NOTE | 2025-02-27 09:09 | P.NB_ITS ---
Nerve Block Nerve Block Time Seen by Provider: 08:35 Date Seen: 02/27/25 Type of block requested by surgeon for post-operative analgesia: geniculars Side: left Time out performed: Yes Verification of patient name: Yes Verification of date of : Yes Site marking: site marked Name of person performing procedure: Tom Continuous monitoring Was continuous monitoring of O2 sat, B/P, quality assurance monitor chassis, recorded every 15 minutes?: Yes Procedure Checklist: sterile prep, needles and gloves Ultrasound guided. Images saved: Yes Medications given in 5ml increments after negative aspiration: Marcaine %: 0.25 mL: 9 Needle gauge: 25 Patient tolerated procedure well: Yes Block Charges Block Charge (with Pro Fee): Genicular Nerve Block
--- NOTE | 2025-02-27 09:09 | W.ANESCHARGE ---
Anesthesia Charges Start Date/Time Anesthesia Start Date: 02/27/25 Anesthesia Start Time: 08:55 Stop Date/Time Anesthesia Stop Date: 02/27/25 Anesthesia Stop Time: 11:14 Summary Extremes of Age - Over 70 or under 1: MDA Coding CPT Codes CPT Codes: ANESTH KNEE ARTHROPLASTY - 15416 ([id number]) P2 - PATIENT W/MILD SYST DISEASE, QK - TOOL CARRIER 2-4 CNCRNT ANES PROC, QX - LINUX ADMINISTRATOR SVC W/ MD MED DIRECTION Additional Codes: Summary - Extremes of Age - Over 70 or under 1: MDA ([id number])
--- NOTE | 2025-02-27 09:15 | CRLHL7_ITS ---
For Patients: As a result of the Cures Act, medical imaging exams and procedure reports are released immediately into your electronic medical record. You may view this report before your referring provider. If you have questions, please contact your health care provider. Indication: Postop Technique: Two views left knee Findings/Impression: Hardware from a left total knee arthroplasty is in satisfactory position. Bone alignment is normal. No sign of acute fracture. Postop changes are within normal limits. Dictated by Rajinder Giordano MD @ 02/27/2025 1:15:19 PM (Electronically Signed)
[2025-02-27] MEDS: TRANEXAMIC ACID 100 MG/ML INJ 1000 MG IV (09:18)
--- NOTE | 2025-02-27 10:33 | PM.ORPRC ---
Procedure Note Date of procedure: 02/27/25 Procedure: PREOPERATIVE DIAGNOSIS: 1. Left knee osteoarthritis, primary, severe POSTOPERATIVE DIAGNOSIS: 1. Left knee osteoarthritis, primary, severe PROCEDURE: 1. Left total knee arthroplasty - subvastus SURGEON: Helder Jensen MD. PATENT LAWYER: Mac Avalos PA-C - Of note, a skilled physician office assistant was critical for this case to aid in patient positioning, tissue retraction, limb manipulation/positioning, and closure. ANESTHESIA: Spinal anesthetic EBL: 50ml IMPLANTS: DePuy J&J all cemented TKA - Attune PS femur size 7 Size 6 tibia 6 mm poly spacer 38 mm patella TOURNIQUET: 90 min at 300 torr COMPLICATIONS: None evident INDICATIONS: The patient is a pleasant 79-year-old male who has experienced severe left knee pain and difficulty bearing weight. Workup included x-rays which revealed severe osteoarthrosis in the knee. Given the deformity, the dysfunction, and the pain, as well as the failure of nonoperative management, recommendation was made for surgery. FINDINGS: Full-thickness chondral loss diffusely throughout the knee all 3 compartments. Significant erosion to even greater degree in the medial compartment both femur and tibia. Large effusion upon entering the joint. Large osteophytes and loose bodies in the posterior recesses of the knee. DESCRIPTION OF PROCEDURE: Following a thorough discussion of risks, benefits, and alternatives consent was obtained and the left knee was marked. The patient was brought to the operating room and placed supine on the operating table. Induction of anesthesia was undertaken. 2 g IV Ancef and 1 g tranexamic acid was administered within 1 hr of incision preoperatively. Proper time-out was performed identifying proper patient, site, procedure. The operative extremity was prepped and draped in the appropriate sterile fashion using ChloraPrep after the patient was positioned supine with all bony prominences well padded. A longitudinal, anterior, midline skin incision was made starting approximately 3cm proximal to the superior pole of the patella and advanced distal to the tibial tubercle. A subvastus approach was utilized. A medial subperiosteal sleeve was created with knife, kirby elevator and curved osteotome. The retropatellar fatpad was resected and the synovium in the suprapatellar pouch excised to visualize the anterior femoral cortex. Femoral preparation was performed via an intramedullary guide. Step drill allowed access into the femoral canal. The distal cutting guide was placed with 5? of valgus and 13 mm cut on the distal femur due to a 15?+ flexion contracture. Femur was sized using a anterior referencing guide in 3? of external rotation. This found have a best fit with the sizing noted above. The 4 in 1 cutting block was then placed, and the distal femur shaped accordingly. The box cut was then created and the trial implant inserted to confirm appropriate fit. We turned our attention to the proximal tibia. Extramedullary guide was utilized for cutting with the goal of being 90 degree cut from the mechanical axis of the tibia in the varus/valgus plane utilizing tibial crest as the primary alignment. Initially a 1 mm resection was performed from the medial tibial plateau. Ultimately, balancing was achieved in both flexion and extension in both varus and valgus. The knee was able to achieve full extension as well comfortably. The patella was initially measured and found have a thickness of 24 mm. It was resected back to approximately 14 mm. It was sized to be a best fit with as noted above. This was drilled, trial placed. All trials were placed and found to have an excellent stability and balance. At this stage, trial implants were removed, the knee was thoroughly irrigated with normal saline, and the cement was mixed. After irrigation, the knee was thoroughly dried, and cement placed, with the real tibial and femoral implants placed along with the patella. Trial poly spacer was placed and confirmed to have excellent range of motion and full extension, and the real poly spacer opened and inserted. All extra cement was removed, and a 3 min Betadine soak performed. Finally, a final irrigation round with normal saline was performed. Closure performed with 0 PDS and #0 Stratafix for the quad tendon/retinaculum. 2-0 Vicryl/Stratafix for the subcutaneous and 4-0 Monocryl for subcuticular closure. Dressings were applied and the patient was awoken from anesthesia after the tourniquet deflated and transferred the PACU in stable condition. A skilled physician office assistant was critical for this case to aid in patient positioning, tissue retraction, bone exposure, limb manipulation/positioning, patient safety, and closure. PLAN: 1. Weight bear as tolerated operative extremity. 2. 23 hr perioperative antibiotics. 3. Ice. 4. PT/OT consults for ambulation assistance/mobility education. 5. Social work consult for discharge planning. 6. DVT prophylaxis with at SCDs and aspirin twice daily.
--- NOTE | 2025-02-27 11:16 | P.ANES_ITS ---
Anesthesia Charges Start Date/Time Anesthesia Start Date: 02/27/25 Anesthesia Start Time: 08:55 Stop Date/Time Anesthesia Stop Date: 02/27/25 Anesthesia Stop Time: 11:14 Coding CPT Codes CPT Codes: ANESTH KNEE ARTHROPLASTY - 31634 ([id number]) P2 - PATIENT W/MILD SYST DISEASE, QK - CLINICAL DATA ABSTRACTOR 2-4 CNCRNT ANES PROC, QX - MOUNTER AUTOMATIC SVC W/ MD MED DIRECTION
--- NOTE | 2025-02-27 11:16 | W.ANESCHARGE ---
Anesthesia Charges Start Date/Time Anesthesia Start Date: 02/27/25 Anesthesia Start Time: 08:55 Stop Date/Time Anesthesia Stop Date: 02/27/25 Anesthesia Stop Time: 11:14 Coding CPT Codes CPT Codes: ANESTH KNEE ARTHROPLASTY - 91960 ([id number]) P2 - PATIENT W/MILD SYST DISEASE, QK - SUPERVISOR METER REPAIR SHOP 2-4 CNCRNT ANES PROC, QX - STRIKE OFF MACHINE OPERATOR SVC W/ MD MED DIRECTION
[2025-02-27] MEDS: ONDANSETRON 2 MG/ML inj 4 MG IVP (12:25)
[2025-02-27] MEDS: CEFAZOLIN 2 GM in 0.9 % SODIUM CHLORIDE Mini-bag 100 ML IVPB ×2 (14:15→22:18)
--- NOTE | 2025-02-27 15:28 | PM.IMCN1 ---
Date of Consult Consult date: 02/27/25 Requesting Physician: Orthopedics Primary Care Provider: Not a Local Provider Consult Narrative Reason for consult: Rash, hyperchloesterolemia Narrative: Kalin Hidalgo is a 79 year old male who underwent an elective left total knee arthroplasty today by Dr. Jensen for severe osteoarthritis. No complications. Doing well postoperatively. He tells me that he has had a rash for many weeks, but he is vague on when it started. He thinks it is a reaction to Tylenol. At 1st he tells me that it started around the time of his right knee surgery in October, but he then said he did not think it was going on while he was taking the Tylenol in the postop period. But then started sometime just after that when he started taking ibuprofen for pain instead of the Tylenol. Then he had to stop ibuprofen 2 weeks ago to prepare for this knee surgery and so he started taking Tylenol instead. He had a rash on his legs that was itchy, but it sounds like that started before he started taking Tylenol again and then he started developing a rash on his neck in the skin fold and over his left anterior chest/shoulder. He stop taking Tylenol altogether a week ago and the rash is improving, but not gone yet. His , Carolina, came into the room and said that she thought it was from fabric softener sheet. She normally uses a certain kind of fabric softener, but is unsure if maybe she used a Snuggle sheet 1 time 3 weeks ago which she thinks caused a rash. Kalin tells me that the rash was only in these places, having for started on his legs, but was not on his feet or rest of his body until recently when it showed up only in his neck and upper chest. He has never had a rash on his back, arms, upper legs, or abdomen. They cannot think of anything else that might be new or that he was exposed to. He has only been in air-conditioned places and not out in the heat. He denies any perioral sensations, throat swelling, difficulties breathing or chest pain. Denies lightheadedness or dizziness. Review of Systems Status of ROS: Reports: 6 or more systems reviewed and unremarkable except as noted in History and below [facility] Medical History (Updated 02/27/25 @ 15:41 by Jemima Taylor MD) Osteoarthritis of left knee ?M17.12 - Unilateral primary osteoarthritis, left knee (ICD-10) Urinary urgency (07/07/21) ?R39.15 - Urgency of urination (ICD-10) Obesity with body mass index of 30.0-39.9 (07/12/14) ?E66.9 - Obesity, unspecified (ICD-10) Edema (05/05/18) ?R60.9 - Edema, unspecified (ICD-10) Squamous cell carcinoma Hyperlipidemia ?E78.5 - Hyperlipidemia, unspecified (ICD-10) Surgical History (Updated 02/27/25 @ 15:34 by Jemima Taylor MD) Status post total left knee replacement ?Z96.652 - Presence of left artificial knee joint (ICD-10) Status post total knee replacement ?Z96.659 - Presence of unspecified artificial knee joint (ICD-10) History of total right knee replacement (10/22/24) ?Z96.651 - Presence of right artificial knee joint (ICD-10) History of vasectomy (1993) ?Z98.52 - Vasectomy status (ICD-10) History of open reduction and internal fixation (ORIF) procedure (06/10/14) ?Z98.890 - Other specified postprocedural states (ICD-10) History of lumbar fusion (04/18/18) ?Z98.1 - Arthrodesis status (ICD-10) Social History (Updated 02/27/25 @ 15:31 by Jemima Taylor MD) Narrative: - Roseanne. Smokes 1-2 cigarettes per month. Drinks a beer a day. What is your current living situation?: I presently have a place to live Problems where you live: no known problems Problems where you live details: na In the past 12 months, utilities in danger of being shut off: no In past 12 months, lack of transportation kept you from medical appts, meetings, work, or getting things needed for daily living: no In the past 12 mos, have been you worried that your food would run out before you had money to buy more?: never true In the past 12 mos, the food you bought just didn't last and you didn't have money to buy more?: never true Smoking Status: Former smoker Do you use any of these nicotine containing products: None How often do you have a drink containing alcohol: 2-3 times a week How many standard drinks containing alcohol do you have on a typical day: 1 or 2 How often do you have six or more drinks on one occasion: Never AUDIT-C Alcohol total score: 3 Non-prescribed substance use: denies use Caffeine: Yes How often does anyone, including family, friends and others, physically hurt you: never How often does anyone, including family, friends and others, insult or talk down to you: never How often does anyone, including family, friends and others, threaten you with harm: never How often does anyone, including family, friends and others, scream or curse at you: never service: No Meds Home Medications and Allergies Home Medications ?Medication ?Instructions ?Recorded ?Confirmed ?Type pravastatin 40 mg tablet 40 mg PO DAILY 09/18/24 02/27/25 History acetaminophen 500 mg capsule 500 - 1,000 mg (1 - 2 x 500 mg) PO 02/27/25 Rx Q6H PRN #100 caps aspirin 81 mg tablet,delayed 81 mg PO BID #60 tabs 02/27/25 Rx release fluticasone propionate 50 1 spray intranasal BID 02/27/25 02/27/25 History mcg/actuation nasal spray,suspension oxycodone 5 mg tablet 2.5 - 5 mg (0.5 - 1 x 5 mg) PO 02/27/25 Rx Q4-6H PRN pain #42 tabs sennosides 8.6 mg-docusate sodium 1 - 4 tab-cap (1 - 4 x 8.6-50 mg) 02/27/25 Rx 50 mg tablet (Senna-S) PO BID PRN constipation #60 tabs sildenafil 50 mg tablet 50 mg PO DAILY PRN 02/27/25 02/27/25 History Allergies Allergy/AdvReac Type Severity Reaction Status Date / Time No Known Drug Allergies Allergy Verified 02/27/25 08:31 Exam Narrative: Exam Narrative: General: No acute distress. Awake alert oriented x3. HEENT: Normocephalic atraumatic, pupils equally round and reactive to light and accommodation. Oropharynx clear. Mucous membranes are moist. No cervical lymphadenopathy, thyromegaly or carotid bruits. No JVD. Cardiovascular: Regular rate and rhythm. No murmurs, gallops, or rubs. Chest: No increased work of breathing. Clear to auscultation bilaterally. No crackles or wheezes. Abdomen: Bowel sounds present. Soft, nondistended, nontender. No hepatosplenomegaly or masses. Extremities: No edema, no cyanosis or clubbing. Skin: Light red maculopapular rash in the skin fold of his neck and left upper chest. Although there is no evidence of rash at this time on his shins, he does have excoriations that he says are from scratching where there was a rash few weeks ago. No rash elsewhere such as face, back, abdomen, arms, or legs. No jaundice, no pallor. Const: Vital Signs, click to edit/add: Vital Signs - 24 hr 02/27/25 07:20 02/27/25 08:30 02/27/25 11:10 Temperature 97.4 F L 98.7 F Pulse Rate 64 60 60 Pulse Rate [Left P ulse Oximeter] Respiratory Rate 16 16 16 Blood Pressure 118/88 122/69 88/51 L Blood Pressure [Ri ght Arm] Pulse Oximetry 96 96 95 Oxygen Delivery Me thod Room Air Nasal Cannula OxyMask Oxygen Flow Rate 2 5 02/27/25 11:15 02/27/25 11:20 02/27/25 11:25 Temperature Pulse Rate 51 L 53 L 57 L Pulse Rate [Left P ulse Oximeter] Respiratory Rate 16 18 16 Blood Pressure 111/61 103/62 91/57 L Blood Pressure [Ri ght Arm] Pulse Oximetry 95 95 95 Oxygen Delivery Me thod Room Air Oxygen Flow Rate 02/27/25 11:30 02/27/25 11:35 02/27/25 11:40 Temperature Pulse Rate 56 L 56 L 54 L Pulse Rate [Left P ulse Oximeter] Respiratory Rate 16 16 18 Blood Pressure 99/61 104/55 L 99/56 L Blood Pressure [Ri ght Arm] Pulse Oximetry 93 93 94 Oxygen Delivery Me thod Oxygen Flow Rate 02/27/25 11:45 02/27/25 12:00 02/27/25 12:00 Temperature 97.9 F Pulse Rate 54 L Pulse Rate [Left P ulse Oximeter] 52 L Respiratory Rate 16 18 16 Blood Pressure 103/58 L Blood Pressure [Ri ght Arm] 106/67 Pulse Oximetry 92 94 94 Oxygen Delivery Me thod Room Air Room Air Room Air Oxygen Flow Rate 02/27/25 12:15 02/27/25 12:30 02/27/25 12:45 Temperature 96.5 F L 96.5 F L 96.6 F L Pulse Rate Pulse Rate [Left P ulse Oximeter] 52 L 52 L 61 Respiratory Rate 16 18 16 Blood Pressure Blood Pressure [Ri ght Arm] 144/67 H 122/71 132/74 Pulse Oximetry 95 99 98 Oxygen Delivery Me thod Room Air Room Air Room Air Oxygen Flow Rate 02/27/25 13:15 02/27/25 13:45 02/27/25 14:45 Temperature 96.6 F L 96.0 F L 96.2 F L Pulse Rate Pulse Rate [Left P ulse Oximeter] 52 L 57 L 61 Respiratory Rate 16 18 16 Blood Pressure Blood Pressure [Ri ght Arm] 134/70 137/77 132/74 Pulse Oximetry 96 99 96 Oxygen Delivery Me thod Room Air Room Air Room Air Oxygen Flow Rate Assessment and Plan Assessment and plan (1) Status post total left knee replacement: Problem comment: - 02/27/25 Dr. Jensen - routine post op cares - VTE prophylaxis: SCDs and BID baby aspirin x 30 days Status: Acute (2) Osteoarthritis of left knee: Problem comment: severe Status: Chronic (3) Hyperlipidemia: Problem comment: Continue statin Status: Chronic (4) Rash of neck: Problem comment: - possible abating allergic reaction, unclear cause. Start triamcinolone ointment, Zyrtec and famotidine. I asked the patient and his to alert us if any new symptoms arise, especially Jackeline oral sensations or numbness, throat swelling or tightness, lightheaded or dizziness, or new or worsening rash. Status: Acute
--- NOTE | 2025-02-27 15:39 | PC.NURSE ---
End of shift report: [id number]: Alert and oriented upon admission to room. Nausea reported, prn zofran administered and effective. Pain to left knee well managed with current regimen. Dressing clean, dry and intact. Non pitting edema around surgical site, no redness noted. Ice pack to knee. Diet advanced and tolerating food without issue.
[2025-02-27] MEDS: CETIRIZINE HCL 10 MG TABLET PO (16:07)
[2025-02-27] MEDS: FAMOTIDINE 20 MG TABLET PO ×2 (16:07→20:12)
[2025-02-27] MEDS: LACTATED RINGERS 1000 ML 1,000 ML 75 ML IV (16:20)
[2025-02-27] MEDS: SENNOSIDES 1 TAB TABLET 2 TAB PO (20:10)
[2025-02-27] MEDS: ASPIRIN 81 MG TABLET EC PO (20:12)
[2025-02-27] MEDS: TRIAMCINOLONE ACETONIDE OINTMENT 0.1 % 1 APPLIC TOPICAL (20:17)
[2025-02-27] MEDS: SODIUM CHLORIDE 0.9 % (FLUSH) 10 ML SYRINGE 5 ML IVF (22:17)
--- NOTE | 2025-02-27 22:48 | PC.NURSE ---
Patient ambulates with SBA and walker. He is tolerating regular diet, IV left wrist SL. Patient managing pain with prn medications, ice, and rest. Dressing to Left knee is clean, dry, and intact. Patient is continent of clear yellow urine.
[2025-02-28] MEDS: SODIUM CHLORIDE NASAL SPRAY 1 SPRAY NOSTRIL-B ×2 (01:40→06:56)
[2025-02-28 03:00] VITALS: BP 153/74; PULSE 76; RESP 16; TEMP 36.5; O2SAT 96
[2025-02-28] MEDS: ACETAMINOPHEN 500 MG TABLET 1000 MG PO ×2 (03:11→09:15)
[2025-02-28] MEDS: CEFAZOLIN 2 GM in 0.9 % SODIUM CHLORIDE Mini-bag 100 ML IVPB (06:48)
[2025-02-28 06:57] LABS: Hematocrit 42.7 % (37.0-53.0); Hemoglobin* 14.2 gm/dL (13.5-17.5); Immature Granulocytes Abs Auto 0.01 K/uL (0.00-0.30); Immature Granulocytes Pct Auto 0.1 %; Lymphocytes Absolute Auto 0.90 K/uL (0.90-2.90); Mean Corpuscular HGB Conc 33 gm/dL (32-36); Mean Corpuscular Hemoglobin 31 pg (26-34); Mean Corpuscular Volume 93 fL (80-100); RDW Coefficient of Variation % 13.2 % (11.5-15.5); Red Blood Count 4.60 m/uL (4.30-5.90); Slide Review Reflex No; White Blood Count* 7.13 K/uL (4.50-11.00)
[2025-02-28 07:00] VITALS: BP 149/95; PULSE 78; RESP 18; TEMP 36.6; O2SAT 96
--- NOTE | 2025-02-28 07:04 | PC.NURSE ---
[id number]: Pt pleasant, alert and oriented. VSS. Pain rated 7/10, prn oxy given and pt stated improvement. Dressing C/D/I. Ice pack to op site. Pt up with SBA, walker and gait belt. Pt in bed, appears to be resting, call light within reach.?
[2025-02-28 07:12] LABS: Potassium* 4.4 mmol/L (3.6-5.1); Sodium* 137 mmol/L (135-149)
[2025-02-28 07:15] LABS: Blood Urea Nitrogen* 16 mg/dL (7-30); Creatinine* 0.9 mg/dL (0.5-1.5); Est. Creatinine Clearance* 57.84; Estimated Glomerular Filt Rate 88 ml/min
[2025-02-28] MEDS: CETIRIZINE HCL 10 MG TABLET PO (07:37)
[2025-02-28] MEDS: PRAVASTATIN SODIUM 20 MG TABLET 40 MG PO (07:37)
[2025-02-28] MEDS: SENNOSIDES 1 TAB TABLET 2 TAB PO (07:38)
[2025-02-28] MEDS: ASPIRIN 81 MG TABLET EC PO (07:38)
[2025-02-28] MEDS: TRIAMCINOLONE ACETONIDE OINTMENT 0.1 % 1 APPLIC TOPICAL (07:42)
--- NOTE | 2025-02-28 12:24 | PC.NURSE ---
End of shift report [id number]: Alert and oriented x 4. Pain to left knee well managed with current regimen. Dressing clean, dry and intact. Discharged home with via wheelchair. Discharge paperwork reviewed and patient verbalized understanding.
--- NOTE | 2025-02-28 15:05 | PM.ORPN ---
Subjective Subjective Date Seen: 02/28/25 Principal diagnosis: Status postop day 1 left total knee arthroplasty Interval history: Patient reports doing well. No acute events over night. Some mild nausea, treated with Zofran with good relief. Pain managed with scheduled and PRN medications, ice. DVT prophylaxis: 81 mg aspirin by mouth twice daily, SCDs, walking. Denies fevers, chills, aches, vomiting, CP, SOB/ARMSTRONG, or lightheadedness. Ortho Exam Narrative Exam Narrative: -Patient appears comfortable; no apparent acute distress -Alert and oriented times 3 -Operative knee moderately swollen as well as swollen leg and ankle. Soft tissues supple; no ecchymosis; no erythematous streaking Warmth appropriate -Surgical dressing clean, dry, intact; no drainage -Bilateral calfs soft; no significant swelling, edema, tenderness, erythema, discoloration, warmth, or palpable cords -2+ DP/PT pulses, intact dermatomes and myotomes distally (5/5 strength) Const Vital Signs, click to edit/add: Vital Signs - 24 hr 02/27/25 15:45 02/27/25 16:45 02/27/25 17:45 Temperature 97.3 F L 97.3 F L 97.3 F L Pulse Rate [Left Pulse Oximeter] 69 74 76 Respiratory Rate 16 16 16 Blood Pressure [Right Arm] 138/75 138/84 143/72 H Pulse Oximetry 97 97 100 Oxygen Delivery Method Room Air Room Air Room Air Oxygen Flow Rate 5 02/27/25 20:22 02/27/25 23:00 02/27/25 23:00 Temperature 97.5 F L Pulse Rate [Left Pulse Oximeter] 63 Respiratory Rate 15 Blood Pressure [Right Arm] 155/75 H Pulse Oximetry 9 L 95 95 Oxygen Delivery Method Room Air Room Air Oxygen Flow Rate 02/27/25 23:00 02/28/25 03:00 02/28/25 07:00 Temperature 97.7 F 97.8 F Pulse Rate [Left Pulse Oximeter] 63 76 78 Respiratory Rate 15 16 18 Blood Pressure [Right Arm] 153/74 H 149/95 H Pulse Oximetry 96 96 Oxygen Delivery Method Room Air Room Air Oxygen Flow Rate 02/28/25 07:00 02/28/25 07:00 02/28/25 07:00 Temperature Pulse Rate [Left Pulse Oximeter] 78 Respiratory Rate 18 18 Blood Pressure [Right Arm] Pulse Oximetry 96 96 Oxygen Delivery Method Room Air Oxygen Flow Rate Assessment and Plan Assessment and plan (1) Status post total left knee replacement: Problem details: - 02/27/25 Dr. Jensen - routine post op cares - VTE prophylaxis: SCDs and BID baby aspirin x 30 days Status: Acute (2) Osteoarthritis of left knee: Problem details: severe Status: Chronic (3) Hyperlipidemia: Problem details: Continue statin Status: Chronic (4) Rash of neck: Problem details: - possible abating allergic reaction, unclear cause. Start triamcinolone ointment, Zyrtec and famotidine. I asked the patient and his to alert us if any new symptoms arise, especially Jackeline oral sensations or numbness, throat swelling or tightness, lightheaded or dizziness, or new or worsening rash. Status: Acute Plan - Complete 23 hour perioperative antibiotics. - PT/OT consult for education and assistance. - Social work consult for discharge planning - Prescribed analgesics as needed - DVT prophylaxis: 81 mg aspirin by mouth twice daily, walking, and SCDs - Anticipation is for discharge to home with today 02/28/2025 if the patient remains medically stable, pain is controlled, and they are safe with mobilization.
== END 2025-02-28 11:20 | disposition home or self-care (01) ==
LOC: OR 07:02 → MEDSURG 07:02
PROVIDERS: Visit Provider Orthopaedic Surgery Sports Medicine
PROC: (CPT 27447; principal; 2025-02-27 08:45)
DX: M17.12 Unilateral primary osteoarthritis, left knee (principal); G89.18 Other acute postprocedural pain; R21 Rash and other nonspecific skin eruption; E78.00 Pure hypercholesterolemia, unspecified; E66.9 Obesity, unspecified; Z68.32 Body mass index [BMI] 32.0-32.9, adult
CPT/HCPCS: 27447; 01402; 36415; 64447; 64454; 73560; 76942; 82565; 84132; 84295; 84520; 85025; 97110; 97116; 97161; 97165; 97530; 97535; 99100; A9270; C1776; J0665; J0690; J1100; J1171; J1200; J2250; J2371; J2405; J2704; J3010; J7120

== ENCOUNTER 2025-03-07 10:48 | Outpatient (CLI) | payer MEDICARE, SELFPAY ==
--- NOTE | 2025-03-07 11:30 | CRLHL7_ITS ---
For Patients: As a result of the Cures Act, medical imaging exams and procedure reports are released immediately into your electronic medical record. You may view this report before your referring provider. If you have questions, please contact your health care provider. INDICATION: Left leg swelling. Post left TKA. TECHNIQUE: Jordan-scale two-dimensional ultrasound without and with compression as well as color-flow and spectral Doppler of the left lower extremity veins. COMPARISON: None. FINDINGS: Normal compressibility of and flow within the left common femoral, superficial femoral, popliteal, posterior tibial, profunda, and greater saphenous veins is demonstrated. No thrombus is identified. The right common femoral vein is clear. IMPRESSION: Negative left lower extremity venous Doppler study. Dictated by Beto Salcedo MD @ 03/07/2025 11:37:52 AM (Electronically Signed)
== END 2025-03-07 10:49 | disposition home or self-care (01) ==
LOC: US 10:49
PROVIDERS: Visit Provider Physician Assistant Surgical
DX: M79.662 Pain in left lower leg (principal); R22.42 Localized swelling, mass and lump, left lower limb; Z96.652 Presence of left artificial knee joint
CPT/HCPCS: 93971